=== PATIENT | male | born 1940 | race Caucasian/White ===

== ENCOUNTER 2017-06-22 23:34 | Emergency (ER) | payer MEDICARE ==
[~2017-06-22] VITALS: Ht 190.5 cm; Wt 98.0 kg
[~2017-06-22 23:34] MED LIST: ASPI81 PO; COUM3TAB PO; COUM4TAB7 PO; LEVO.1 PO; TOPR50TA PO
[2017-06-22 23:38] VITALS: BP 109/61; PULSE 69; RESP 16; TEMP 79.4; TEMP 97.4; O2SAT 100
[2017-06-23 00:15] VITALS: BP 121/67; PULSE 73; RESP 26; O2SAT 100
[2017-06-23] MEDS ORDERED: SODIUM CHLORIDE 0.9% FLUSH 10 ML FLUSH IVF PRN (00:15)
[2017-06-23] MEDS ORDERED: HYDROmorphone HCL PF 1 MG/ML VIAL IV PUSH ONE (00:15)
[2017-06-23] MEDS: ONDANSETRON HCL 4 MG/2 ML VIAL ONE ×2 (00:25→01:20)
--- NOTE | 2017-06-23 00:31 | PD ---
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 His son saw him fall and he landed towards his left side hitting his left abdomen and left chest. Patient reports severe pain in the left abdomen, constant, associated with a large amount of blood coming out of his ostomy. He does feel somewhat lightheaded and dizzy. He is not on any blood thinners at this time. He does have a history of blood clots in atrial fibrillation but he had an IVC filter put in and he no longer takes anticoagulation. Patient has had problems with blood loss in his GI tract in the past and these required multiple transfusions. He is followed at [facility] and also in [facility]. He did not hit his head when he fell. His most recent surgery was 6 months ago when he had his ostomy placed. He was recently admitted to [facility] in the setting of an abscess and he had a drain placed and he is currently on amoxicillin and Zyvox orally. PFSH Past Medical History Atrial Fibrillation: Yes Blood Disorders: No Heart Rhythm Problems: Yes (ATRIAL FIBRILLATION) Cancer: Yes (LIPOSARCOMA) Cardiovascular Problems: Yes Chemotherapy: No Deep Vein Thrombosis: Yes (L CALF 05/2006) Endocrine: Yes Gastrointestinal Disorders: Yes GERD: Yes Genitourinary: Yes (RIGHT NEPHRECTOMY; INCREASE BUN& CREATNINE) Hypertension: Yes Immune Disorder: No Musculoskeletal: No Neurologic: Yes Psychiatric: No Reproductive: No Respiratory: Yes Radiation Therapy: No Sleep Apnea: Yes (PATIENT THINKS HE HAS IT; NOT DIAGNOSED) Thyroid Disease: Yes (HYPOTHYROIDISM) Tetanus Vaccination: < 5 Years Past Surgical History Abdominal Surgery: Yes (22LB LIPOSARCOMA REMOVED FROM CHEST IN 2004, LEFT KIDNEY & PARTIAL COLON RE) AICD: No Arteriovenous Shunt: No Genitourinary Surgery: Yes (R PARTIAL NEPHRECTOMY, MASS 2006) Insulin Pump: No Joint Replacement: No Pacemaker: No Social History Alcohol Use: No Tobacco Use: No Substance Use: No Allergies-Medications (Allergen,Severity, Reaction): Coded Allergies: No Known Allergies (Verified Allergy, Severe, 1/17/08) Reported Meds & Prescriptions Reported Meds & Active Scripts Active Reported Colace (Docusate Sodium) 100 Mg Capsule 1 Cap PO DAILY Synthroid (Levothyroxine Sodium) 100 Mcg Tab 100 Mcg PO DAILY Metoprolol Succinate ER 24 HR (Metoprolol Succinate) 25 Mg Tab 25 Mg PO DAILY Pantoprazole (Pantoprazole Sodium) 40 Mg Tab 40 Mg PO DAILY Linezolid 600 Mg Tab 600 Mg PO Q12H Augmentin (Amoxicillin-Clavulanate) 875-125 Mg Tab 1 Tab PO BID Review of Systems Except as stated in HPI: all other systems reviewed are Neg Physical Exam Narrative GENERAL: Chronically ill-appearing SKIN: Pale HEAD: Atraumatic. Normocephalic. EYES: Pupils equal and round. No injection or drainage. ENT: Moist mucous membranes NECK: Trachea midline. CARDIOVASCULAR: Regular rate and rhythm. No murmur appreciated. RESPIRATORY: Clear to auscultation. Breath sounds equal bilaterally. Ecchymoses in the left subcostal area. GASTROINTESTINAL: Abdomen soft, diffusely mildly tender to palpation with no rebound or guarding. Firm mass appreciated in the right lower quadrant. Multiple scars in the abdomen. Blood in the ostomy bag. MUSCULOSKELETAL: No obvious deformities. NEUROLOGICAL: Awake and alert. No obvious cranial nerve deficits. Moving all extremities. PSYCHIATRIC: Appropriate mood and affect; insight and judgment normal. Data Data Last Documented VS Vital Signs Date Time Temp Pulse Resp B/P (MAP) Pulse Ox O2 Delivery O2 Flow Rate FiO2 06/23/17 04:45 97.8 69 20 132/74 (93) 100 Room Air Orders Orders Complete Blood Count With Diff (06/23/17 00:09) Comprehensive Metabolic Panel (06/23/17 00:09) Prothrombin Time / Inr (Pt) (06/23/17 00:09) Act Partial Throm Time (Ptt) (06/23/17 00:09) Type And Screen (06/23/17 00:09) Red Blood Cells (Rbc) (06/23/17 00:09) Ecg Monitoring (06/23/17 00:09) Iv Access Insert/Monitor (06/23/17 00:09) Oximetry (06/23/17 00:09) Sodium Chloride 0.9% Flush (Ns Flush) (06/23/17 00:15) Hydromorphone Pf Inj (Dilaudid Pf Inj) (06/23/17 00:15) Ondansetron Inj (Zofran Inj) (06/23/17 00:25) Blood Culture (06/23/17 01:13) Lactic Acid (06/23/17 01:13) Linezolid 600 Mg Premix (Zyvox 600 Mg Pr (06/23/17 01:15) Amoxicil-Clavulanate (Augmentin) (06/23/17 01:15) Pantoprazole Inj (Protonix Inj) (06/23/17 01:15) Pantoprazole Inj (Protonix Inj) (06/23/17 01:15) Blood Product Administration (06/23/17 01:13) Sodium Chlor 0.9% 250 Ml Inj (Ns 250 Ml (06/23/17 01:15) Ct Abd/Pel W/O Iv Contrast (06/23/17 ) Cbc No Diff, Includes Plts (06/23/17 02:58) Labs Laboratory Tests Test 06/23/17 00:15 06/23/17 03:05 06/23/17 03:15 White Blood Count 16.6 TH/MM3 10.8 TH/MM3 Red Blood Count 2.97 MIL/MM3 2.53 MIL/MM3 Hemoglobin 8.8 GM/DL 7.7 GM/DL Hematocrit 26.5 % 22.5 % Mean Corpuscular Volume 89.2 FL 88.7 FL Mean Corpuscular Hemoglobin 29.7 PG 30.2 PG Mean Corpuscular Hemoglobin Concent 33.3 % 34.1 % Red Cell Distribution Width 18.2 % 18.3 % Platelet Count 213 TH/MM3 148 TH/MM3 Mean Platelet Volume 9.1 FL 8.5 FL Neutrophils (%) (Auto) 92.2 % Lymphocytes (%) (Auto) 4.2 % Monocytes (%) (Auto) 2.6 % Eosinophils (%) (Auto) 0.2 % Basophils (%) (Auto) 0.8 % Neutrophils # (Auto) 15.3 TH/MM3 Lymphocytes # (Auto) 0.7 TH/MM3 Monocytes # (Auto) 0.4 TH/MM3 Eosinophils # (Auto) 0.0 TH/MM3 Basophils # (Auto) 0.1 TH/MM3 CBC Comment DIFF FINAL Differential Comment Prothrombin Time 14.7 SEC Prothromb Time International Ratio 1.3 RATIO Activated Partial Thromboplast Time 26.1 SEC Blood Urea Nitrogen 20 MG/DL Creatinine 1.28 MG/DL Random Glucose 196 MG/DL Total Protein 6.9 GM/DL Albumin 2.5 GM/DL Calcium Level 8.3 MG/DL Alkaline Phosphatase 94 U/L Aspartate Amino Transf (AST/SGOT) 20 U/L Alanine Aminotransferase (ALT/SGPT) 30 U/L Total Bilirubin 0.7 MG/DL Sodium Level 140 MEQ/L Potassium Level 3.9 MEQ/L Chloride Level 106 MEQ/L Carbon Dioxide Level 21.3 MEQ/L Anion Gap 13 MEQ/L Estimat Glomerular Filtration Rate 55 ML/MIN Lactic Acid Level 2.9 mmol/L MDM Medical Decision Making Medical Screen Exam Complete: Yes Emergency Medical Condition: Yes Interpretation(s) no tachycardia, no hypoxia, normotensive Leukocytosis with 92% neutrophils Hemoglobin is 8.8, family reports baseline is 10.2 electrolytes within normal limits CT abd/pelvis: 1. Complex mass in the central to left pelvis and lower abdomen measuring up to around 15 cm in diameter. Mass contains small locules of air, fluid and some dependent density that may represent hemorrhage. Small locules of air within this complex fluid does raise the possibility of abscess and infection. 2. Left lower quadrant colostomy with previous partial colonic resection. Previous left nephrectomy. Differential Diagnosis Bowel injury, splenic injury, liver laceration, gastritis, ulcer Narrative Course This is a 76-year-old male who has a complex medical history who has a history of abdominal liposarcomas one of which was resected 6 months ago at [facility] in [place]. At that time he had a colostomy placed. This surgery appeared to be potentially complicated by an infection in that area and a possible fistula. He had multiple drains placed which were ultimately removed and he's been on antibiotics. He's been on linezolid and amoxicillin. Today he fell on his left side and had a large amount of bloody ostomy output. Here in the emergency department he has reassuring vital signs. He is not tachycardic but he does take metoprolol. Initial hemoglobin is 8.8 which is down from his baseline of 10.2. He was ordered for a unit of blood. Bloody output ceased in the emergency department. He was started on pantoprazole. Labs demonstrate a leukocytosis. Cultures were obtained and he was given a dose of IV linezolid and amoxicillin which are his home antibiotics. A CT abdomen and pelvis was obtained which demonstrates a complex mass in the left pelvis 15 cm in diameter, heterogenous with some air and fluid which may represent hemorrhage or abscess. Blood count was repeated prior to transfer and his hemoglobin was 7.7. I ordered an additional unit of blood to be started after the first unit transfused his. His lactic acid is 2.9. I prefer to resuscitate patient with blood first so fluids were deferred. Patient has had seizures performed at [facility] but says he is well known to Zina Johns a surgical oncologist at [facility]. The family would like the patient to be transported to [place] [facility] which I think is very reasonable given the complexity of the patient's disease. Patient will be transfused, a repeat hemoglobin will be drawn 4 hours after his initial. I think at this point he is stable for transfer. I spoke to Dr. Johns who agreed to accept the patient and I spoke to Dr. Velasquez in the [facility] emergency department who is aware of the patient. Diagnosis Primary Impression: GI bleed Qualified Codes: K92.2 - Gastrointestinal hemorrhage, unspecified Additional Impression: Abdominal mass Qualified Codes: R19.04 - Left lower quadrant abdominal swelling, mass and lump Disposition: 70 TRANSFER TO OTHER FACILITY Condition: Stable Zeinab Chatman MD Jun 23, 2017 00:31
[2017-06-23 00:53] LABS: HEMATOCRIT 26.5 % (39.0-51.0); MEAN CELL VOLUME 89.2 FL (80.0-100.0); MEAN CORPUSCULAR HEMOGLOBIN 29.7 PG (27.0-34.0); MEAN CORPUSCULAR HGB CONC 33.3 % (32.0-36.0); PLATELET COUNT 213 TH/MM3 (150-450); RED BLOOD COUNT 2.97 MIL/MM3 (4.50-5.90); RED CELL DISTRIBUTION WIDTH 18.2 % (11.6-17.2); WHITE BLOOD COUNT 16.6 TH/MM3 (4.0-11.0)
[2017-06-23 00:54] LABS: AUTOMATED NEUTROPHIL # 15.3 TH/MM3 (1.8-7.7); BASOPHIL # 0.1 TH/MM3 (0-0.2); BASOPHIL % 0.8 % (0.0-2.0); EOSINOPHIL % 0.2 % (0.0-4.0); HEMO FLAGS DIFF FINAL; LYMPH % 4.2 % (9.0-44.0); LYMPHOCYTE # 0.7 TH/MM3 (1.0-4.8); MONO % 2.6 % (0.0-8.0); NEUT % 92.2 % (16.0-70.0)
[2017-06-23 01:05] LABS: APTT (PATIENT) 26.1 SEC (24.3-30.1); INTERNATIONAL NORMALIZED RATIO 1.3 RATIO; PROTHROMBIN TIME - PATIENT 14.7 SEC (9.8-11.6)
[2017-06-23] MEDS ORDERED: SODIUM CHLOR 0.9% 250 ML INJ 250 ML IV ONE (01:15)
[2017-06-23] MEDS ORDERED: LINEZOLID 600 MG PREMIX 300 ML IV ONE (01:15)
[2017-06-23] MEDS ORDERED: PANTOPRAZOLE INJ 80 MG in SODIUM CHLORIDE 0.9% INJ 35 ML IV ONE (01:15)
[2017-06-23] MEDS ORDERED: PANTOPRAZOLE INJ 80 MG in SODIUM CHLORIDE 0.9% INJ 100 ML IV SCH (01:15)
[2017-06-23] MEDS ORDERED: AMOXICILLIN/CLAVULANATE K 875 MG TAB PO ONE (01:15)
[2017-06-23] MEDS ORDERED: COLA100C PO (01:18)
[2017-06-23] MEDS ORDERED: AUGM875T3 PO (01:18)
[2017-06-23] MEDS ORDERED: PANT40TA3 PO (01:18)
[2017-06-23] MEDS ORDERED: LEVO.1 PO (01:18)
[2017-06-23] MEDS ORDERED: LINE1TAB PO (01:18)
[2017-06-23] MEDS ORDERED: METO25TA6 PO (01:18)
[2017-06-23 01:20] LABS: ANION GAP 13 MEQ/L (5-15); AST (GOT) 20 U/L (15-37); BICARBONATE 21.3 MEQ/L (21.0-32.0); BLOOD UREA NITROGEN 20 MG/DL (7-18); CHLORIDE 106 MEQ/L (98-107); POTASSIUM 3.9 MEQ/L (3.5-5.1); SODIUM (NA) 140 MEQ/L (136-145)
[2017-06-23 01:26] LABS: ALKALINE PHOSPHATASE 94 U/L (45-117); ALT (GPT) 30 U/L (12-78); GLOMERULAR FILTRATION RATE 55 ML/MIN (>89); TOTAL BILIRUBIN ADULT 0.7 MG/DL (0.2-1.0)
--- NOTE | 2017-06-23 02:08 | RADRPT ---
EXAM DATE/TIME: 06/23/2017 01:39 [facility] COMPARISON: No previous studies available for comparison. INDICATIONS : Patient fell, hitting left side. Has left side abdominal pain and blood in colostomy. ORAL CONTRAST: No oral contrast ingested. RADIATION DOSE: 10.49 CTDIvol (mGy) MEDICAL HISTORY : Hypertension. Deep venous thrombosis. Liposarcoma. SURGICAL HISTORY : Colostomy. Nephrectomy, left.Pacemaker.Partial colon removed. Liposarcoma removed from chest. ENCOUNTER: Initial ACUITY: 1 day PAIN SCALE: 8/10 LOCATION: Left Abdomen. TECHNIQUE: Volumetric scanning of the abdomen and pelvis was performed. Using automated exposure control and ad justment of the mA and/or kV according to patient size, radiation dose was kept as low as reasonably achievable to obtain optimal diagnostic quality images. DICOM format image data is available electro nically for review and comparison. FINDINGS: Lung bases are clear except minimal dependent atelectasis. Pacer leads in right atrium and right vent ricle. No significant abnormality in the liver, spleen. Inferior vena cava filter present. Postoperative lef t nephrectomy. Focal scarring right kidney with small nonobstructing calculi measuring 1-2 mm. No dima cified gallstones. There is a complex oval-shaped mass in the central to left pelvis and lower abdomen measuring up to 1 5.6 cm in cephalocaudad extent, at 13.8 cm transverse and 10.7 cm AP. Mass contains fluid and multipl e small locules of air. There is also some density posteriorly that may represent hemorrhage. There i s a left lower quadrant colostomy with previous partial colonic resection. No significant free fluid in the abdomen. No free air. Laparotomy changes anteriorly. CONCLUSION: 1. Complex mass in the central to left pelvis and lower abdomen measuring up to around [address] Mass contains small locules of air, fluid and some dependent density that may represent hemorrha ge. Small locules of air within this complex fluid does raise the possibility of abscess and infectio n. 2. Left lower quadrant colostomy with previous partial colonic resection. Previous left nephrectomy. Campbell Saeed MD on June 23, 2017 at 1:59 Board Certified Radiologist. This report was verified electronically.
[2017-06-23 03:44] VITALS: TEMP 97.6
[2017-06-23 04:08] LABS: HEMATOCRIT 22.5 % (39.0-51.0); MEAN CELL VOLUME 88.7 FL (80.0-100.0); MEAN CORPUSCULAR HEMOGLOBIN 30.2 PG (27.0-34.0); MEAN CORPUSCULAR HGB CONC 34.1 % (32.0-36.0); PLATELET COUNT 148 TH/MM3 (150-450); RED BLOOD COUNT 2.53 MIL/MM3 (4.50-5.90); RED CELL DISTRIBUTION WIDTH 18.3 % (11.6-17.2); REVIEW FLAG FINAL; WHITE BLOOD COUNT 10.8 TH/MM3 (4.0-11.0)
[2017-06-23 04:15] VITALS: BP 125/73; PULSE 69; RESP 20; TEMP 97.6; O2SAT 100
[2017-06-23 04:30] VITALS: BP 132/69; PULSE 69; RESP 22; TEMP 97.8; O2SAT 100
[2017-06-23 04:45] VITALS: BP 132/74; PULSE 69; RESP 20; TEMP 97.8; O2SAT 100
[2017-06-23 05:51] VITALS: BP 135/74
--- NOTE | 2017-06-23 07:10 | EKG ---
Date Performed: 06/23/2017 Time Performed: 00:12:28 PTAGE: 76 years EKG: ELECTRONIC VENTRICULAR PACEMAKER ABNORMAL RHYTHM ECG PREVIOUS TRACING : 10/11/2007 05.57 Compared to previous tracing ventricular pacing is now evid ent. DOCTOR: Bhupinder Nix Interpretating Date/Time 06/26/2017 06:56:16
== END 2017-06-23 06:00 | disposition short-term general hospital (02) ==
LOC: NEPE 23:34
DX: K92.2 Gastrointestinal hemorrhage, unspecified (principal); R19.04 Left lower quadrant abdominal swelling, mass and lump; D72.829 Elevated white blood cell count, unspecified; R42 Dizziness and giddiness; R56.9 Unspecified convulsions; I48.91 Unspecified atrial fibrillation; I10 Essential (primary) hypertension; E03.9 Hypothyroidism, unspecified; Z43.3 Encounter for attention to colostomy
CPT/HCPCS: 36430; 74176; 80053; 83605; 85025; 85027; 85610; 85730; 86850; 86900; 86901; 86920; 87040; 93005; 96365; 96366; 96368; 96375; 99285; C9113; J1170; J2020; J2405; J7050; P9016